=== PATIENT | female | born 2000 | race Caucasian/White ===

== ENCOUNTER 2020-08-10 01:09 | Emergency (ER) | payer BC ==
[2020-08-10] MEDS ORDERED: Ketorolac 15 MG/ML SDV IM ONE (01:58)
[2020-08-10] MEDS ORDERED: Amoxicillin/Clavulanate K 875-125 MG Tab PO ONE (01:59)
--- NOTE | 2020-08-10 02:14 | EDM.PDOC ---
ED HPI GENERAL MEDICAL PROBLEM - General Chief Complaint: ENT Problem Stated Complaint: PAIN IN BOTH EARS Time Seen by Provider: 08/10/20 01:42 - History of Present Illness INITIAL COMMENTS - FREE TEXT/NARRATIVE: CHIEF COMPLAINT(S): Ear pain HISTORY OF PRESENT ILLNESS: This is a 20-year-old woman without any past medical history who comes to the emergency department with a chief complaint of ear pain. The patient states that she is experiencing ear pain that began 2 days ago. She states that the pain is located in her bilateral ears and describes the pain as pounding and throbbing. She states that the pain is rated 7-8 out of 10 without any radiation. She states that she has an associated headache which is all over her head without any associated blurry vision, diplopia, numbness, tingling, weakness. She states that she thought this was just sinus issues but it seemed to have gotten worse. She denies any sore throat, fever, or chills. She states that she has not yet tried any pain medications and there are no exacerbating factors. REVIEW OF SYSTEMS: Constitutional: Denies fever, chills. Eyes: Denies eye pain Ears, Nose, Mouth, & Throat: Positive for bilateral ear pain Cardiovascular: Denies chest pain Respiratory: Denies shortness of breath Gastrointestinal: Denies Nausea, vomiting, diarrhea, hematochezia. Genitourinary: Denies hematuria Skin:Denies a rash MSK: Denies joint pain Neurological: Positive for headache. Denies blurred vision, diplopia, numbness, tingling, weakness Psychiatric: Denies depression PAST MEDICAL HISTORY: As per history of present illness and as reviewed below otherwise noncontributory. SURGICAL HISTORY: As per history of present illness and as reviewed below otherwise noncontributory. LMP: 1 week ago SOCIAL HISTORY: As per history of present illness and as reviewed below otherwise noncontributory. FAMILY HISTORY: As per history of present illness and as reviewed below otherwise noncontributory. EXAMINATION OF ORGAN SYSTEMS/BODY AREAS: Constitutional: Blood pressure is 116/77, heart rate 98, respiratory rate 18 with an oxygen saturation of 98% on room air. Temperature 36.3 General: 20-year-old woman who appears to be congested and uncomfortable Psychiatric: Appropriate mood and affect. Eyes: No scleral icterus or conjunctival erythema ENMT: Moist mucous membranes. No pharyngeal erythema left tympanic membrane is bulging with a effusion and erythema. Right tympanic membrane without any effusion, erythema or bulging. Bilateral nasal turbinates with clear nasal drainage. There is frontal sinus tenderness to palpation. Cardiovascular: Regular, rate, and rhythm. No gallops, murmurs, or rubs. Bilateral upper extremity pulses symmetric and intact. No peripheral edema. No JVD. Respiratory: Lungs clear to auscultation bilaterally. No wheezes, rales, or rhonchi. Skin: No lesions or abrasions. Neurological: Alert, GCS 15 strength and sensation grossly intact in upper and lower extremities bilaterally. MEDICAL DECISION MAKING AND COURSE IN THE ED WITH INTERPRETATION/REVIEW OF DIAGNOSTIC STUDIES: This is a 20-year-old woman without any significant past medical history who presents to the emergency department with bilateral ear pain, sinus congestion, and headache who has evidence of left otitis media. At this time we will provide the patient with Toradol for pain relief and provide the patient with Augmentin by mouth. I did discuss with patient at this time she be stable for discharge. I encouraged the patient to complete the antibiotic course and to use Tylenol and Motrin for pain relief. She was taylor nable to discharge at this time and had no further questions. I do not believe any labs or imaging are indicated DISPOSITION: The patient was discharged home in stable condition. The patient will follow up with her primary care physician CONDITION: Fair PROCEDURES: None FINAL IMPRESSION(S)/DIAGNOSES: 1. Acute left otitis media Man Pereira M.D. bilat ears Pain Score (Numeric/FACES): 7 - Related Data Allergies Allergy/AdvReac Type Severity Reaction Status Date / Time No Known Allergies Allergy Verified 08/10/20 01:37 Home Meds: Home Meds Amoxicillin/Potassium Clav [Amox Tr-K Clv 875-125 mg Tab] 1 each PO BID #14 tablet 08/10/20 [Rx] Past Medical History Other Musculoskeletal History: L acl and elbow sx - Infectious Disease History Infectious Disease History: Reports: None - Past Surgical History HEENT Surgical History: Reports: Naso-Sinus Surgery Social & Family History - Family History Family Medical History: No Pertinent Family History - Caffeine Use Caffeine Use: Reports: None - Recreational Drug Use Recreational Drug Type: Reports: Marijuana/Hashish ED ROS GENERAL - Review of Systems Review Of Systems: See Below ED EXAM, GENERAL - Physical Exam Exam: See Below Course - Vital Signs Last Recorded V/S: Last Vital Signs Temp 36.3 C 08/10/20 01:38 Pulse 80 08/10/20 02:30 Resp 18 08/10/20 02:30 BP 120/72 08/10/20 02:30 Pulse Ox 98 08/10/20 02:30 - Orders/Labs/Meds Meds: Medications Discontinued Medications Generic Name Dose Route Start Last Admin Trade Name Angelique PRN Reason Stop Dose Admin Amoxicillin/Clavulanate Potassium 1 tab 08/10/20 01:59 08/10/20 02:11 Amoxicillin/Clavulanate K 875-125 Mg Tab PO 08/10/20 02:00 1 tab ONETIME ONE Administration Ketorolac Tromethamine 15 mg 08/10/20 01:58 08/10/20 02:12 Ketorolac 15 Mg/Ml Sdv IM 08/10/20 01:59 15 mg ONETIME ONE Administration Departure - Departure Time of Disposition: 02:14 Disposition: Home, Self-Care 01 Condition: Fair Clinical Impression: Otitis media - Discharge Information *PRESCRIPTION DRUG MONITORING PROGRAM REVIEWED*: No *COPY OF PRESCRIPTION DRUG MONITORING REPORT IN PATIENT AGAPITO: No Prescriptions: Amoxicillin/Potassium Clav [Amox Tr-K Clv 875-125 mg Tab] 1 each PO BID #14 tablet Instructions: Otitis Media, Adult, [id number] Referrals: PCP,None [Primary Care Provider] - Forms: ED Department Discharge Additional Instructions: You evaluate today on an emergent basis. At this time there is evidence of a left ear infection. I do recommend the use of Tylenol and Motrin for pain relief. We did provide you with an antibiotic here and we did send your prescription to the pharmacy. Please complete the full antibiotic course. If you have any new or worsening symptoms please return to the emergency department. Please follow-up with primary care physician within 1 week. [facility] [address] [place] [address] [id number] [address] [address] The patient is informed of any results of their evaluation and diagnostic workup and all questions are answered. They are given discharge instructions and return precautions. The patient is stable for discharge. The patient states they understand and agree with the plan and that they will return if their symptoms get worse or if they have any new concerns. The following information is given to patients seen in the emergency department who are being discharged to home. This information is to outline your options for follow-up care. We provide all patients seen in our emergency department with a follow-up referral. The need for follow-up, as well as the timing and circumstances, are variable depending upon the specifics of your emergency department visit. If you don't have a primary care physician on staff, we will provide you with a referral. We always advise you to contact your personal physician following an emergency department visit to inform them of the circumstance of the visit and for follow-up with them and/or the need for any referrals to a consulting specialist. The emergency department will also refer you to a specialist when appropriate. This referral assures that you have the opportunity for follow-up care with a specialist. All of these measure are taken in an effort to provide you with optimal care, which includes your follow-up. Under all circumstances we always encourage you to contact your private physician who remains a resource for coordinating your care. When calling for follow-up care, please make the office aware that this follow-up is from your recent emergency room visit. If for any reason you are refused follow-up, please contact the [facility] Emergency Department at and asked to speak to the emergency department charge nurse. Sepsis Event Note (ED) - Evaluation Sepsis Screening Result: No Definite Risk
== END 2020-08-10 02:35 | disposition home or self-care (01) ==
LOC: MW.ED 01:09
DX: H66.92 Otitis media, unspecified, left ear (principal); H92.01 Otalgia, right ear
CPT/HCPCS: 96372; 99282; A9270; J1885